=== PATIENT | male | born 1975 | race Caucasian/White ===

== ENCOUNTER 2017-08-26 23:11 | Emergency (ER) | payer OTHER ==
[2017-08-26] MEDS ORDERED: SODIUM CHLORIDE 0.9% 1,000 ML IV ONE (23:47)
[2017-08-26] MEDS ORDERED: KETOROLAC 60 MG/2 ML VIAL IVP STA (23:47)
[2017-08-27 00:05] LABS: BASOPHILS # (AUTO) 0.1 10^3/uL (0.0-0.1); BASOPHILS % (AUTO) 0.5 %; EOSINOPHILS # (AUTO) 0.2 10^3/uL (0.0-0.7); EOSINOPHILS % (AUTO) 1.6 %; HGB - HEMOGLOBIN 13.7 g/dL (14.0-18.0); LYMPHOCYTES # (AUTO) 2.1 10^3/uL (1.5-3.5); LYMPHOCYTES % (AUTO) 15.2 %; MEAN CORPUSCULAR HEMOGLOBIN 30.3 pg (27.0-31.0); MEAN CORPUSCULAR VOLUME 84.2 fL (80.0-94.0); MEAN PLATELET VOLUME 7.2 fL (7.4-11.4); MONOCYTES # (AUTO) 1.1 10^3/uL (0.0-1.0); NEUTROPHILS # (AUTO) 10.4 10^3/uL (1.5-6.6); NEUTROPHILS % (AUTO) 74.7 %; PLT - PLATELET COUNT 224 10^3/uL (130-450); RED BLOOD COUNT 4.54 10^6/uL (4.70-6.10); RED CELL DISTRIBUTION WIDTH 13.3 % (12.0-15.0)
[2017-08-27 00:17] LABS: CALCIUM 8.7 mg/dL (8.5-10.3); CREATININE 0.8 mg/dL (0.6-1.2)
--- NOTE | 2017-08-27 00:44 | CT Report ---
EXAM: CT HEAD EXAM DATE: 08/27/2017 12:19 AM. CLINICAL HISTORY: Headache. COMPARISON: None. TECHNIQUE: Multiaxial CT images were obtained from the foramen magnum to the vertex. Reformats: Coron al. IV contrast: None. In accordance with CT protocol optimization, one or more of the following dose reduction techniques w ere utilized for this exam: automated exposure control, adjustment of mA and/or KV based on patient s ize, or use of iterative reconstructive technique. FINDINGS: Parenchyma: No intraparenchymal hemorrhage. No evidence of mass, midline shift, or CT findings of inf arction. Hutson-white differentiation is distinct. Extraaxial Spaces: Normal for age. No subdural or epidural collections identified. Ventricles: Normal in size and position. Sinuses and Orbits: Imaged paranasal sinuses, orbits, and mastoids show no significant abnormality. Bones: No evidence of fracture or calvarial defect. Other: None. IMPRESSION: No acute or focal intracranial abnormality. [facility] Referring Provider Line: [phone] SITE ID: [id number]
[2017-08-27] MEDS ORDERED: LIDOCAINE 1%-EPI 1:100000 20 ML MDV SUBQ STA (00:54)
--- NOTE | 2017-08-27 00:54 | ED Physician Documentation ---
PD HPI HEADACHE - Stated complaint Stated Complaint: FEVER,HEADACHE - Chief complaint Chief Complaint: Neuro - History obtained from History obtained from: Patient - History of Present Illness Timing - onset: How many days ago (2) Timing - duration: Days (2) Timing - details: Gradual onset Worst headache ever?: Worst headache ever? (Yes) Location: Global Quality: Throbbing Associated symptoms: Fever, Nausea. No: Vomiting, Weakness, Numbness, Vision changes Contributing factors: No: Trauma Similar symptoms before: Has not had sx before - Treatment prior to arrival Treatment prior to arrival: Ibuprofen, without relief. - Additional information Additional information: The patient is an otherwise healthy 42-year-old male who presents with headache that started 2 days ago and has gotten worse today. It has been gradual in onset, and is the worst headache of his life. He has had associated fever, and nausea, without vomiting. He reports mild photosensitivity, but otherwise no visual disturbance. He has taken Motrin, without relief. He denies history of similar symptoms in the past. Review of Systems Constitutional: reports: Fever, Myalgias Eyes: reports: Photophobia. denies: Decreased vision Ears: denies: Ear pain, Tinnitus/ringing Nose: denies: Congestion Throat: denies: Sore throat Cardiac: denies: Chest pain / pressure Respiratory: denies: Dyspnea, Cough GI: reports: Nausea. denies: Abdominal Pain, Vomiting : denies: Dysuria Skin: reports: Rash (on chest and right shoulder) Musculoskeletal: reports: Neck pain (mild). denies: Extremity pain Neurologic: reports: Headache. denies: Focal weakness, Numbness, Altered mental status, Head injury PD PAST MEDICAL HISTORY - Past Medical History Past Medical History: Yes Cardiovascular: Hypertension Endocrine/Autoimmune: None - Past Surgical History Past Surgical History: No - Present Medications Home Medications: Ambulatory Orders Medication Instructions Recorded Confirmed Aspirin 81 mg PO DAILY 08/26/17 08/26/17 Lisinopril 12.5 mg PO DAILY 08/26/17 08/26/17 HYDROcod/ACETAM 5/325 [[place] 5/325] 1 - 2 ea PO Q6H PRN #15 tablet 08/27/17 Promethazine [Phenergan] 25 - 50 mg PO Q6H PRN #10 tab 08/27/17 - Allergies Allergies/Adverse Reactions: Allergies Allergy/AdvReac Type Severity Reaction Status Date / Time No Known Drug Allergies Allergy Verified 08/26/17 23:19 - Social History Does the pt smoke?: No Smoking Status: Never smoker Does the pt drink ETOH?: Yes Does the pt have substance abuse?: No - Immunizations Immunizations are current?: Yes PD ED PE NORMAL - Vitals Vital signs reviewed: Yes (initially hypertensive.) - General General: Alert and oriented X 3, Well developed/nourished, Other (Appears miserable.) - HEENT HEENT: Atraumatic, PERRL, EOMI, Ears normal, Moist mucous membranes, Pharynx benign - Neck Neck: No bony TTP, Other (Very minimal meningismus. Anterior cervical nodes are mildly enlarged.) - Cardiac Cardiac: RRR, No murmur - Respiratory Respiratory: No respiratory distress, Clear bilaterally - Abdomen Abdomen: Soft, Non tender - Back Back: No CVA TTP, No spinal TTP - Derm Derm: Other (There is a 2.5 centimeter slightly discolored patch on the right anterior chest, and another smaller patch over the latissimus region of the right shoulder.) - Extremities Extremities: No edema, No calf tenderness / cord - Neuro Neuro: Alert and oriented X 3, No motor deficit, No sensory deficit Results - Vitals Vitals: Oxygen O2 Source Room air - Labs Labs: Microbiology 08/27/17 01:15 CSF Culture - Preliminary Cerebral Spinal Fluid No growth Laboratory Tests 08/27/17 08/27/17 08/27/17 00:00 00:00 01:15 WBC 14.0 H RBC 4.54 L Hgb 13.7 L Hct 38.2 L MCV 84.2 MCH 30.3 MCHC 36.0 RDW 13.3 Plt Count 224 MPV 7.2 L Neut # 10.4 H Lymph # 2.1 [place] # 1.1 H Eos # 0.2 Baso # 0.1 Absolute Nucleated RBC 0.00 Nucleated RBC % 0.0 Sodium 135 Potassium 3.3 L Chloride 101 Carbon Dioxide 25 Anion Gap 9.0 BUN 11 Creatinine 0.8 Estimated GFR (MDRD) 106 Glucose 123 H Calcium 8.7 CSF Color COLORLESS CSF Clarity CLEAR Xanthrochromic ABSENT CSF WBC 3 CSF RBC 25 H CSF Cell Count Tube # CSF TUBE# 3 CSF Glucose 58 CSF Total Protein 111 H - Rads (name of study) head CT Radiology: Prelim report reviewed, EMP read contemporaneously, See rad report ( No acute or focal intracranial abnormality.) Procedures - Lumbar Puncture Position: Sitting Location: L3-L4, L4-L5, Midline approach Anesthesia: Local lidocaine CSF: Clear Pressures: Opening Pressure (Normal.) Other: Sterile prep and drape, Patient tolerated well, Other (The initial site of lumbar puncture, at the L3-L4 level, resulted in a bloody tap. This site was abandoned, and procedure repeated at the L4-L5 level, with good results, with visually clear cerebral spinal fluid.) PD MEDICAL DECISION MAKING - ED course Complexity details: reviewed results, re-evaluated patient, considered differential, d/w patient ED course: The patient's presentation is significant for headache that is most likely caused by acute viral syndrome. Lumbar puncture was negative for meningitis. His presentation does not suggest intracranial hemorrhage, and head CT prior to the LP was negative. Treatment in the emergency department included administration of normal saline 2 L IV, ketorolac 30 mg IV, and Ofirmev 1 g IV. His headache improved with the above treatment. He is being discharged with prescriptions for Phenergan and for Vicodin, 20 tablets, and a prepack of Vicodin was dispensed. I discussed with him the results of his workup, expected course of illness, the importance of outpatient follow-up, as well as potentially worrisome signs or symptoms that should prompt reevaluation in the emergency department. Departure - Departure Disposition: 01 Home, Self Care Clinical Impression: Acute viral syndrome Headache Qualifiers: Headache type: unspecified Headache chronicity pattern: acute headache Condition: Stable Instructions: ED Viral Syndrome Follow-Up: [facility] Greenfrancisco j Graves [Provider Group] Prescriptions: HYDROcod/ACETAM 5/325 [[place] 5/325] 1 - 2 ea PO Q6H PRN #15 tablet PRN Reason: Pain Promethazine [Phenergan] 25 - 50 mg PO Q6H PRN #10 tab PRN Reason: Nausea / Vomiting Comments: Drink plenty of fluids. You can use ibuprofen, up to 800 mg 3 times daily if needed for fever. You can use Phenergan as prescribed if needed for nausea. You can use Vicodin as prescribed if needed for pain. Follow up with your primary physician this week. Call to schedule an appointment. Return to the emergency department if you develop increasing headache, persistent vomiting, or otherwise worsening symptoms. Discharge Date/Time: 08/27/17 03:51
[2017-08-27] MEDS ORDERED: SODIUM CHLORIDE 0.9% 1,000 ML IV ONE (01:36)
[2017-08-27 01:58] LABS: CSF - GLUCOSE 58 mg/dL (45-70)
[2017-08-27 02:12] LABS: CLARITY,CSF CLEAR (CLEAR); COLOR,CSF COLORLESS (COLORLESS); CSF TUBE # CSF TUBE# 3; CSF XANTHOCHROMIA ABSENT (ABSENT); RED BLOOD CELL,CSF 25 /mm^3 (0-1); WHITE BLOOD CELL,CSF 3 /mm^3 (0-5)
[2017-08-27] MEDS ORDERED: ACETAMINOPHEN 1,000 MG/100 ML 100 ML IV STA (02:28)
[2017-08-27] MEDS ORDERED: HYDROcod/ACET 5/325 Prepack 6 PO STA (03:37)
[2017-08-27 03:51] VITALS: BP 129/74
== END 2017-08-27 03:51 | disposition home or self-care (01) ==
LOC: ED 23:11
DX: B34.9 Viral infection, unspecified (principal); I10 Essential (primary) hypertension
CPT/HCPCS: 36415; 62270; 70450; 80048; 82945; 84157; 85025; 87070; 87205; 89051; 96361; 96365; 99283; J0131

== ENCOUNTER 2023-04-11 21:47 | Emergency (ER) | payer OTHER ==
[2023-04-11] MEDS ORDERED: ASPIRIN CHEW 81 MG TABLET PO STA (22:02)
[2023-04-11] MEDS ORDERED: NITROGLYCERIN SL 0.4 MG TABLET SL STA (22:02)
--- NOTE | 2023-04-11 22:03 | ED Physician Documentation ---
PD HPI CHEST PAIN - Stated complaint Stated Complaint: CHEST PX - Chief complaint Chief Complaint: Cardiac - History obtained from History obtained from: Patient - Additional information Additional information: 47-year-old gentleman with no known history of coronary disease but risk factors including hypertension and both brother and father had relatively young onset of coronary disease. He was at rest this evening at 9 PM and started to feel substernal chest pressure. In some ways similar to but in some ways different than prior heartburn. He took an omeprazole without him immediate relief. He is not short of breath with it but the pain does change somewhat with deep breathing. Denies pedal edema or calf pain. No recent travel. PD PAST MEDICAL HISTORY - Past Medical History Cardiovascular: Hypertension Endocrine/Autoimmune: None - Past Surgical History Past Surgical History: No - Present Medications Home Medications: Ambulatory Orders Medication Instructions Recorded Confirmed Aspirin 81 mg PO DAILY 08/26/17 08/26/17 lisinopriL [Lisinopril] 12.5 mg PO DAILY 08/26/17 08/26/17 HYDROcod/ACETAM 5/325 [[place] 5/325] 1 - 2 ea PO Q6H PRN #15 tablet 08/27/17 Promethazine [Phenergan] 25 - 50 mg PO Q6H PRN #10 tab 08/27/17 - Allergies Allergies/Adverse Reactions: Allergies Allergy/AdvReac Type Severity Reaction Status Date / Time No Known Drug Allergies Allergy Verified 04/11/23 21:50 - Social History Does the pt smoke?: No Smoking Status: Never smoker Does the pt drink ETOH?: Yes Does the pt have substance abuse?: No - Immunizations Immunizations are current?: Yes PD ED PE NORMAL - Vitals Vital signs reviewed: Yes - General General: Alert and oriented X 3, No acute distress - Neck Neck: Supple, no meningeal sign, No bony TTP - Cardiac Cardiac: RRR, No murmur - Respiratory Respiratory: No respiratory distress, Clear bilaterally - Abdomen Abdomen: Non tender - Extremities Extremities: No edema, No calf tenderness / cord - Neuro Neuro: Alert and oriented X 3, Normal speech Results - Vitals Vitals: Vital Signs - 24 hr 04/11/23 04/11/23 04/11/23 21:50 21:52 22:52 Temperature 36.6 C Heart Rate 94 85 Respiratory 16 20 Rate Blood Pressure 150/100 H 137/95 H Blood Pressure 137/95 H [Right] O2 Saturation 99 94 Oxygen O2 Source Room air - EKG (time done) 2206 EKG releavant findings:: EKG personally interpreted by author of this note. Relevant findings are: Rate: Rate (enter#) (80) Rhythm: NSR [place]: Normal Intervals: Normal [place], RBBB (Incomplete) QRS: Normal Ischemia: Normal ST segments. No: ST elevation c/w ischemia, ST depression - Labs Labs: Laboratory Tests 04/11/23 04/11/23 22:30 22:30 WBC 10.7 RBC 4.77 Hgb 14.3 Hct 41.1 L MCV 86.2 MCH 30.0 MCHC 34.8 RDW 12.8 Plt Count 275 MPV 9.4 Neut # (Auto) 5.8 Lymph # (Auto) 3.7 H [place] # (Auto) 0.8 Eos # (Auto) 0.3 Baso # (Auto) 0.1 Absolute Nucleated RBC 0.00 Nucleated RBC % 0.0 Sodium 138 Potassium 3.6 Chloride 100 L Carbon Dioxide 28 Anion Gap 10.0 BUN 20 Creatinine 0.8 Estimated GFR (MDRD) 103 Glucose 101 H Calcium 9.6 Total Bilirubin 0.7 AST 19 ALT 22 Alkaline Phosphatase 40 L Troponin I High Sens 2.8 Total Protein 7.6 Albumin 4.4 Globulin 3.2 Albumin/Globulin Ratio 1.4 Lipase 40 - Rads (name of study) Single view chest x-ray is unremarkable Relevant Findings:: Final report received, EMP independent interpretation of test PD Medical Decision Making - ED course ED course: 47-year-old gentleman with acute chest pain, not particularly typical. EKG nonischemic. He does have some risk factors including the hypertension and family history. Heart score 2 assuming negative troponin. Signout to overnight emergency physician at 11 PM shift change pending troponin and likely repeat around midnight after 2 hours. Departure - Departure Clinical Impression: Chest pain Qualifiers: Chest pain type: unspecified Qualified Code(s): R07.9 - Chest pain, unspecified Condition: Good Record reviewed to determine appropriate education?: Yes Instructions: ED Chest Pain NonCardiac Comments: No clear heart cause of your chest pain identified tonight, return if worse and to follow-up with your primary care physician for further evaluation and treatment. Call tomorrow for next available appointment. Forms: PCP List
[2023-04-11 22:36] LABS: BASOPHILS # (AUTO) 0.1 10^3/uL (0.0-0.1); BASOPHILS % (AUTO) 0.9 %; EOSINOPHILS # (AUTO) 0.3 10^3/uL (0.0-0.7); EOSINOPHILS % (AUTO) 2.5 %; HCT - HEMATOCRIT 41.1 % (42.0-52.0); HGB - HEMOGLOBIN 14.3 g/dL (14.0-18.0); LYMPHOCYTES # (AUTO) 3.7 10^3/uL (1.5-3.5); LYMPHOCYTES % (AUTO) 34.5 %; MEAN CORPUSCULAR HGB CONC 34.8 g/dL (32.0-36.0); MEAN CORPUSCULAR VOLUME 86.2 fL (80.0-94.0); MEAN PLATELET VOLUME 9.4 fL (7.4-11.4); MONOCYTES # (AUTO) 0.8 10^3/uL (0.0-1.0); MONOCYTES % (AUTO) 7.5 %; NEUTROPHILS # (AUTO) 5.8 10^3/uL (1.5-6.6); NEUTROPHILS % (AUTO) 54.2 %; PLT - PLATELET COUNT 275 10^3/uL (130-450); RED BLOOD COUNT 4.77 10^6/uL (4.70-6.10); RED CELL DISTRIBUTION WIDTH 12.8 % (12.0-15.0); WHITE BLOOD COUNT 10.7 x10^3/uL (4.8-10.8)
[2023-04-11 22:49] LABS: ALBUMIN 4.4 g/dL (3.2-5.5); ALBUMIN/GLOBULIN RATIO 1.4 (1.0-2.2); BILIRUBIN,TOTAL 0.7 mg/dL (0.2-1.0); CALCIUM 9.6 mg/dL (8.5-10.3); CREATININE 0.8 mg/dL (0.6-1.2); POTASSIUM 3.6 mmol/L (3.5-5.0); TOTAL PROTEIN 7.6 g/dL (6.7-8.2)
[2023-04-11 22:56] LABS: TROPONIN I HIGH SENSITIVITY 2.8 ng/L (2.3-19.7)
--- NOTE | 2023-04-11 23:03 | XRAY Report ---
PROCEDURE: Chest 1 View X-Ray INDICATIONS: Chest pain TECHNIQUE: One view of the chest was acquired. COMPARISON: None. FINDINGS: Surgical changes and devices: None. Lungs and pleura: No pleural effusions or pneumothorax. Lungs are clear. There is mild elevation of the right hemidiaphragm. Mediastinum: Mediastinal contours appear normal. Heart size is normal. Bones and chest wall: No suspicious bony lesions. Overlying soft tissues appear unremarkable. IMPRESSION: No acute cardiopulmonary disease. Reviewed by: Romero Loya MD on 04/11/2023 11:02 PM PDT Approved by: Romero Loya MD on 04/11/2023 11:02 PM PDT Station ID: [id number]
--- NOTE | 2023-04-12 00:16 | ED Physician Documentation ---
ED Addendum - Addendum Addendum: 04/12/23 00:15 Patient endorsed to me by Dr. Mathur awaiting second troponin. Second troponin was negative and patient is without pain in the ED. Advised him to follow-up outpatient with his primary care provider for referral to cardiology. Return precautions given. Impression 1. Chest pain Condition stable Disposition Home
[2023-04-12 00:26] VITALS: BP 115/81; O2SAT 96
== END 2023-04-12 00:22 | disposition home or self-care (01) ==
LOC: ED 21:47
DX: R07.9 Chest pain, unspecified (principal); I10 Essential (primary) hypertension; Z79.82 Long term (current) use of aspirin; Z79.899 Other long term (current) drug therapy; Z82.49 Family history of ischemic heart disease and other diseases of the circulatory system
CPT/HCPCS: 36415; 71045; 80053; 83690; 84484; 85025; 93005; 99283; 99284; A9270

== ENCOUNTER 2023-06-15 10:50 | Outpatient (CLI) | payer OTHER ==
--- NOTE | 2023-06-15 13:13 | XRAY Report ---
PROCEDURE: Shoulder 3 View BILAT INDICATIONS: BILATERAL SHOULDER PAIN TECHNIQUE: 3 views of the bilateral shoulders were acquired. COMPARISON: None. FINDINGS: Bones: No fractures or dislocations. No suspicious bony lesions. Visualized ribs appear intact. Soft tissues: No suspicious soft tissue calcifications. The visualized lungs are within normal limi ts. IMPRESSION: No acute bony abnormality. Reviewed by: Jaret Pride MD on 06/15/2023 1:12 PM PST Approved by: Jaret Pride MD on 06/15/2023 1:12 PM PST Station ID: [id number]
== END 2023-06-15 10:51 | disposition home or self-care (01) ==
LOC: DI 10:50
PROVIDERS: ATTEND Student in an Organized Health Care Education/Training Program
DX: M25.512 Pain in left shoulder (principal); M25.511 Pain in right shoulder

== ENCOUNTER 2023-12-13 09:06 | Outpatient (CLI) | payer OTHER ==
--- NOTE | 2023-12-13 16:20 | XRAY Report ---
PROCEDURE: Foot 3+V LT INDICATIONS: LEFT FOOT PAIN TECHNIQUE: 3 views of the foot were acquired. COMPARISON: None. FINDINGS: Bones: No fractures or dislocations. No suspicious bony lesions. [id number]-[id number] first metatarsop halangeal joint degeneration with subtle periarticular bony erosion. Soft tissues: No tibiotalar joint effusion. Achilles tendon appears normal. IMPRESSION: Jnej-na-[id number] first metatarsophalangeal joint degeneration with subtle periarticular bony erosion. Clinical correlation for inflammatory arthritis such as erosive OA. Reviewed by: Kyle Tobar MD on 12/13/2023 4:19 PM PDT Approved by: Kyle Tobar MD on 12/13/2023 4:19 PM PDT Station ID: [id number]
== END 2023-12-13 09:07 | disposition home or self-care (01) ==
LOC: DI.N 09:06
PROVIDERS: ATTEND Student in an Organized Health Care Education/Training Program
DX: M19.072 Primary osteoarthritis, left ankle and foot (principal); M85.872 Other specified disorders of bone density and structure, left ankle and foot